=== PATIENT | female | born 1965 | race Caucasian/White ===

== ENCOUNTER → 2017-04-19 | Outpatient (CLI) | payer BC ==
[~2017-04-19] VITALS: Ht 172.7 cm; Wt 97.3 kg
[~2017-04-19] MED LIST: ALEVE220 M2 PO; AMBIEN10 MG PO; BIOTIN 5000MCG PO; BIOTIN10000 MC1 PO; CALTRATE PLUS1 EACH PO; ESCITALOPRAM OX20 MG PO; IRON325 MG PO; LEXAPRO20 MG PO; MIMVEY 1-0.5 M1 EACH PO; MOTRIN600 MG PO; MULTIVITAMIN1 EAC2 PO; SINGULAIR10 MG PO; SYNTHROID100 MCG PO; VITAMIN D31000 UNIT PO; ZOLPIDEM TARTRA10 MG PO
== END | disposition home or self-care (01) ==
LOC: AMB 07:23
DX: Z12.11 Encounter for screening for malignant neoplasm of colon (principal); D12.2 Benign neoplasm of ascending colon; D12.3 Benign neoplasm of transverse colon; D12.0 Benign neoplasm of cecum; D12.4 Benign neoplasm of descending colon; D12.5 Benign neoplasm of sigmoid colon; D12.7 Benign neoplasm of rectosigmoid junction; Z86.010 Personal history of colon polyps; Z80.0 Family history of malignant neoplasm of digestive organs; Z83.79 Family history of other diseases of the digestive system; K58.9 Irritable bowel syndrome, unspecified; E55.9 Vitamin D deficiency, unspecified
CPT/HCPCS: 88305; J2250; J3010